=== PATIENT | female | born 1990 | race Caucasian/White ===

== ENCOUNTER 2020-10-11 05:52 | Emergency (ER) | payer MEDICAID ==
[~2020-10-11] VITALS: Ht 162.6 cm; Wt 104.5 kg
[2020-10-11 05:52] VITALS: BP 104/74
--- NOTE | 2020-10-11 06:05 | PHYS DOC ---
Past History Past Medical History: No Pertinent History Adult General Chief Complaint Chief Complaint: LOWER EXT PAIN HPI HPI Patient is a 30-year-old female presenting with right-sided lower back pain. Onset was 4 days ago when patient was on ground playing with her daughter whom subsequently jumped on the right lower left side of her back. Patient has been ambulatory ever since but admits in the last 24 hours she has had worsening right lower back pain which shoots into the right posterior leg not passing her knee. She has taken 200 mg ibuprofen daily without relief. " Everything" makes worse. Pain described as sharp and shooting, is 10 out of 10 during acute flares, currently 3 out of 10 while sitting in chair. Timing of symptoms is constant with activity but lights out during rest. Patient is never experienced this pain before. She has no other concerning medical issues. She denies any red flag signs and symptoms of back pain such as prolonged corticosteroid use, severe trauma, presence of contusion and/or abrasion, history of malignancy, history of IV drug use etc. Review of Systems Review of Systems Fourteen body systems of review of systems have been reviewed. See HPI for pertinent positives and negative responses, other harkins all other systems are negative, non-pertinent or non-contributory Physical Exam Physical Exam Constitutional: Well developed, well nourished, no acute distress, non-toxic appearance. HENT: Normocephalic, atraumatic, bilateral external ears normal, oropharynx moist, no oral exudates, nose normal. Eyes: PERRLA, EOMI, conjunctiva normal, no discharge. Neck: Normal range of motion, no tenderness, supple, no stridor. Cardiovascular: Heart rate regular, sinus rhythm, no murmurs rubs or gallops Lungs & Thorax: Bilateral breath sounds clear to auscultation Abdomen: Bowel sounds normal, soft, no tenderness, no masses, no pulsatile masses. Nonsurgical abdomen, no peritoneal signs Skin: Warm, dry, no erythema, no rash. Back: No midline tenderness, no CVA tenderness. Tenderness to right superior gluteal/right lumbar muscle area Extremities: No tenderness, no cyanosis, no clubbing,, no edema. Decreased range of motion of right lower extremity due to right lower back pain Neurologic: Alert and oriented X 3, bilateral patellar reflexes intact, normal motor & sensory function without saddle anesthesia, no focal deficits noted. Psychologic: Affect normal, judgement normal, mood normal. Current Patient Data Vital Signs Vital Signs Date Time Temp Pulse Resp B/P (MAP) Pulse Ox O2 Delivery O2 Flow Rate FiO2 10/11/20 05:52 98.2 83 20 104/74 (84) 97 EKG EKG [] Radiology/Procedures Radiology/Procedures [] Heart Score Risk Factors: Risk Factors: DM, Current or recent (<one month) smoker, HTN, HLP, family history of CAD, obesity. Risk Scores: Risk Factors: DM, Current or recent (<one month) smoker, HTN, HLP, family history of CAD, obesity. Course & Med Decision Making Course & Med Decision Making Discussed most likely diagnosis of nonemergent/nonsurgical back pain which is likely self-limiting in nature I advised continued supportive care with NSAIDs and/or Tylenol for pain. I advised heating area for 15 minutes 4 times daily daily. Patient follow-up with PCP for repeat evaluation and consideration for physical therapy and/or chiropractor referral I will also be prescribing patient short-term muscle relaxant. I advised she can try capsaicin cream or lidocaine patches which are available [id number]. Patient to stretch daily and continue daily activities using pain is limiting factor Strict return precautions were discussed with good understanding by patient, all questions and concerns addressed prior to ER departure in stable condition Dragon Disclaimer Edon Disclaimer This electronic medical record was generated, in whole or in part, using a voice recognition dictation system. Departure Departure: Impression: Primary Impression: Low back pain radiating to right lower extremity Disposition: 01 AL HOME SELF CARE/HOMELESS Condition: STABLE Referrals: HILARIO TABARES (PCP) Patient Instructions: Back Exercises, Low Back Strain with Rehab-SportsMed Additional Instructions: You were evaluated in the Emergency Department today for back pain. Your evaluation suggests no acute abnormalities which require further intervention at this time. - Move around as tolerated but avoiding heavy lifting. ``Bed rest is not recommended nor is it the best treatment for low back pain. - Medications will help control your discomfort: - -Ibuprofen (800 mg every 8 hours for pain) with food. - -Tylenol - Do not drink alcohol, drive a car, operate machinery, or get up on ladders or heights when taking any prescribed pain medications. - Do not drive home if you received prescribed pain medications here in the ED. Return to the ED immediately if you develop any of the following problems: - Leaking urine or difficulty urinating; - Inability to control your bowels; - New numbness or weakness in your legs or numbness between your legs; - Inability to walk - Fever Scripts Cyclobenzaprine Hcl (CYCLOBENZAPRINE HCL) 10 Mg Tablet 1 TAB PO QHS for MUSCLE SPASMS, #15 TAB Prov: YARITZA OLGUIN DO 10/11/20 Ibuprofen (IBUPROFEN) 800 Mg Tablet 1 TAB PO TID for PAIN, #30 TAB Prov: YARITZA OLGUIN DO 10/11/20 YARITZA OLGUIN DO Oct 11, 2020 06:05
[2020-10-11] MEDS ORDERED: CYCL-331 PO (06:34)
[2020-10-11] MEDS ORDERED: IBUP800T19 PO (06:34)
== END 2020-10-11 06:45 | disposition home or self-care (01) ==
LOC: ER 05:52
DX: M54.5 Low back pain (principal)
CPT/HCPCS: 99283

== ENCOUNTER → 2021-08-28 | Outpatient (CLI) | payer MEDICAID ==
[~2021-08-28] MED LIST: CYCL-331 PO; IBUP800T19 PO
--- NOTE | 2021-08-29 09:42 | RAD ---
EXAMINATION: CT LOWER RIGHT EXTREMITY WITHOUT CONTRAST, 08/28/2021 4:18 PM CLINICAL INDICATION: Evaluate for tibial plateau fracture. Fell 1/2 weeks ago. Right knee pain. COMPARISON: None TECHNIQUE: Helical CT imaging performed of the right knee without the use of intravenous contrast. Sa gittal and coronal reformats were obtained. One or more of the following individualized dose reduction techniques were utilized for this examinat ion: 1. Automated exposure control 2. Adjustment of the mA and/or kV according to patient size 3. Use of iterative reconstruction technique. FINDINGS: There is no acute fracture. Alignment is normal. Joint spaces are maintained. No joint effu emily. Quadriceps and patellar tendons are grossly intact. Cruciate and collateral ligaments are gross ly intact but are better evaluated by MRI. Mild subcutaneous edema anteriorly. Muscles are normal. IMPRESSION: No acute fracture or joint effusion. Electronically signed by: Elizabeth Mendes MD (08/29/2021 9:39 AM) [id number]
== END ==
LOC: CT 16:13
PROVIDERS: ATTEND Family Medicine
DX: M25.561 Pain in right knee (principal); W19.XXXA Unspecified fall, initial encounter
CPT/HCPCS: 73700